=== PATIENT | male | born 1960 | race African-American/Black ===

== ENCOUNTER 2019-11-14 12:09 | Emergency (ER) | payer MEDICAID ==
[~2019-11-14] VITALS: Ht 172.7 cm; Wt 75.0 kg
[2019-11-14 13:10] VITALS: BP 159/91
[2019-11-14] MEDS ORDERED: KETOROLAC 30MG/ML VIAL IM ONE (13:15)
== END 2019-11-14 14:10 | disposition home or self-care (01) ==
LOC: ER 12:09
DX: M54.9 Dorsalgia, unspecified (principal); Z88.0 Allergy status to penicillin
CPT/HCPCS: 96372; 99283; J1885

== ENCOUNTER 2019-11-17 16:15 | Inpatient (IN) | payer MEDICAID ==
[~2019-11-17] VITALS: Ht 165.1 cm; Wt 81.6 kg
[2019-11-17] MEDS ORDERED: ONDANSETRON HCL 4MG/2ML INJ IV ONE (19:45)
[2019-11-17] MEDS ORDERED: KETOROLAC 15MG/ML VIAL IV ONE (19:45)
[2019-11-17 19:51] LABS: CLARITY URINE CLEAR (CLEAR); COLOR URINE YELLOW (YELLOW); KETONES URINE NEGATIVE (NEGATIVE); LEUKOCYTE ESTERASE URINE NEGATIVE (NEGATIVE); NITRITE URINE NEGATIVE (NEGATIVE); OCCULT BLOOD URINE NEGATIVE (NEGATIVE); PROTEIN URINE NEGATIVE (NEGATIVE); SPECIFIC GRAVITY URINE 1.002 (1.005-1.030)
[2019-11-17 19:57] LABS: HEMATOCRIT. 36.2 % (42.0-52.0); HEMOGLOBIN. 11.9 g/dL (14.0-18.0); MEAN CORPUSCULAR HEMOGLOBIN 23.2 pg (28.0-32.0); MEAN CORPUSCULAR VOLUME 70.4 fL (80.0-94.0); MEAN PLATELET VOLUME 7.6 fl (7.4-10.4); PLATELET 219 x1000/uL (130-400); RED BLOOD CELL COUNT 5.14 mill/uL (4.7-6.1); RED CELL DISTRIBUTION WIDTH 17.2 % (11.6-14.6)
[2019-11-17 19:58] LABS: CHLORIDE 87 mEq/L (98-107)
[2019-11-17] MEDS ORDERED: SODIUM CHLORIDE 0.9% 1,000 ML IV ONE (22:45)
[2019-11-17 23:27] LABS: PLATELET ESTIMATE NORMAL
[2019-11-18 03:00] VITALS: BP 136/76
[2019-11-18] MEDS ORDERED: MORPHINE SULFATE 2 MG/ML CPJ (NOT FOR IM USE) IV PRN (03:15)
[2019-11-18] MEDS ORDERED: ONDANSETRON HCL 4MG/2ML INJ IV PRN (03:15)
[2019-11-18] MEDS: LEVOFLOXACIN 500MG PREMIX 100 ML IV SCH (04:39)
[2019-11-18] MEDS: DEXT 5%/0.45% NACL KCL 20MEQ/L 1,000 ML IV SCH ×2 (04:39→16:15)
[2019-11-18 07:08] LABS: HEMATOCRIT. 35.5 % (42.0-52.0); HEMOGLOBIN. 11.6 g/dL (14.0-18.0); MEAN CORPUSCULAR VOLUME 70.5 fL (80.0-94.0); MEAN PLATELET VOLUME 7.5 fl (7.4-10.4); PLATELET 201 x1000/uL (130-400); RED BLOOD CELL COUNT 5.04 mill/uL (4.7-6.1); RED CELL DISTRIBUTION WIDTH 17.1 % (11.6-14.6)
[2019-11-18 07:27] LABS: CHLORIDE 93 mEq/L (98-107)
[2019-11-18 08:00] VITALS: BP 101/47
[2019-11-18 12:00] VITALS: BP 138/60
[2019-11-18] MEDS ORDERED: MORPHINE SULFATE 15MG TABLET SR PO SCH (12:15)
[2019-11-18] MEDS ORDERED: HYDROCODONE/ACETAMINOPHEN 5/325MG TABLET PO SCH (13:15)
[2019-11-18 13:54] LABS: PLATELET ESTIMATE NORMAL
[2019-11-18 16:00] VITALS: BP 148/61
[2019-11-18] MEDS: HEPARIN 5000 UNITS/ML VIAL SUBCUT SCH ×2 (16:14→20:39)
[2019-11-18] MEDS: FAMOTIDINE 20MG/2ML VIAL IV SCH ×2 (16:15→20:39)
[2019-11-18 16:17] LABS: TOTAL IRON BINDING CAPACITY 298 ug/dL (250-450)
[2019-11-18 20:00] VITALS: BP 130/57
[2019-11-19] VITALS (8 sets, daily range): BP systolic 131–174; BP diastolic 61–90
[2019-11-19] MEDS: DEXT 5%/0.45% NACL KCL 20MEQ/L 1,000 ML IV SCH ×2 (03:31→09:55)
[2019-11-19] MEDS: LEVOFLOXACIN 500MG PREMIX 100 ML IV SCH (03:41)
[2019-11-19] MEDS: HEPARIN 5000 UNITS/ML VIAL SUBCUT SCH (09:54)
[2019-11-19] MEDS: FAMOTIDINE 20MG/2ML VIAL IV SCH (09:54)
[2019-11-19] MEDS ORDERED: HYDRALAZINE HCL 50MG TABLET PO SCH (14:00)
[2019-11-19] MEDS ORDERED: FAMO-135 PO (15:08)
[2019-11-19] MEDS ORDERED: AMLO5TAB4 MT (15:08)
[2019-11-19] MEDS ORDERED: LEVO500T2 PO (15:08)
[2019-11-19] MEDS ORDERED: TRAM50TA94 MT (15:08)
[2019-11-19 16:41] LABS: CHLORIDE 93 mEq/L (98-107)
[2019-11-19] MEDS ORDERED: SODIUM CHLORIDE 0.9% 1,000 ML IV SCH (22:15)
[2019-11-21 09:11] LABS: SACCHAROMYCES CEREVISIAE IGG 29.7 Units (0.0-24.9); SACCHAROMYCES CEREVISIAE IGM <20.0 Units (0.0-24.9)
[2019-11-21 13:06] LABS: ATYPICAL pANCA <1:20 titer (Neg:<1:20)
== END 2019-11-19 22:20 | disposition home or self-care (01) | DRG 426 ==
LOC: ER 16:15 → 5WST 23:57 → ENRESERV 11-18 00:54
PROVIDERS: ADMIT Internal Medicine; ATTEND Internal Medicine
PROC: 05HY33Z Insertion of Infusion Device into Upper Vein, Percutaneous Approach (ICD-10-PCS; principal; 2019-11-18)
PROC: B54NZZA Ultrasonography of Left Upper Extremity Veins, Guidance (ICD-10-PCS; 2019-11-18)
DX: E87.1 Hypo-osmolality and hyponatremia (principal); K52.9 Noninfective gastroenteritis and colitis, unspecified; F10.10 Alcohol abuse, uncomplicated; D72.819 Decreased white blood cell count, unspecified; E88.09 Other disorders of plasma-protein metabolism, not elsewhere classified; R74.0 Nonspecific elevation of levels of transaminase and lactic acid dehydrogenase [LDH]; D50.9 Iron deficiency anemia, unspecified; I10 Essential (primary) hypertension; Z87.11 Personal history of peptic ulcer disease; Z98.1 Arthrodesis status; Z88.0 Allergy status to penicillin; Z79.899 Other long term (current) drug therapy; K29.50 Unspecified chronic gastritis without bleeding; M54.9 Dorsalgia, unspecified
CPT/HCPCS: 36415; 71045; 74018; 76705; 76937; 80048; 80053; 81003; 82728; 83540; 83550; 85025; 86256; 86671; 86703; 93005; 96374; 97162; 99291; C1725; J1644; J1885; J1956; J2270; J2405; J3490; J7030

== ENCOUNTER 2020-06-07 11:44 | Emergency (ER) | payer MEDICAID ==
[~2020-06-07] VITALS: Ht 175.3 cm; Wt 79.0 kg
[~2020-06-07 11:44] MED LIST: AMLO5TAB4 MT; FAMO-135 PO; LEVO500T2 PO; TRAM50TA94 MT
[2020-06-07 12:43] LABS: EOSINOPHILS % 4.1 % (0.0-5.0); HEMATOCRIT. 44.2 % (42.0-52.0); HEMOGLOBIN. 14.4 g/dL (14.0-18.0); LYMPHOCYTES % 34.2 % (20.0-50.0); MEAN CORPUSCULAR HEMOGLOBIN 22.4 pg (28.0-32.0); MEAN CORPUSCULAR VOLUME 68.9 fL (80.0-94.0); MEAN PLATELET VOLUME 7.7 fl (7.4-10.4); MONOCYTES % 8.2 % (2.0-8.0); NEUTROPHILS % 52.5 % (40.0-76.0); PLATELET 242 x1000/uL (130-400); RED BLOOD CELL COUNT 6.42 mill/uL (4.7-6.1); RED CELL DISTRIBUTION WIDTH 16.3 % (11.6-14.6)
[2020-06-07 12:50] LABS: CHLORIDE 90 mEq/L (98-107)
[2020-06-07 12:54] LABS: ETHANOL BLOOD < 10 mg/dL
[2020-06-07 13:10] LABS: PLATELET ESTIMATE NORMAL
[2020-06-07] MEDS ORDERED: TRAM50TA3 PO (14:42)
[2020-06-07 15:21] LABS: INR 1.1; PROTHROMBIN TIME 11.3 sec (9.6-11.0)
[2020-06-07] MEDS ORDERED: FAMOTIDINE 20MG TABLET PO ONE (15:30)
[2020-06-07 15:54] VITALS: BP 148/69
== END 2020-06-07 16:10 | disposition home or self-care (01) ==
LOC: ER 12:01
DX: R10.13 Epigastric pain (principal); I10 Essential (primary) hypertension; Z98.890 Other specified postprocedural states; Z79.899 Other long term (current) drug therapy; Z88.0 Allergy status to penicillin
CPT/HCPCS: 36415; 71045; 74176; 80053; 80320; 85025; 86850; 86900; 93005; 99285; A4315; G0480

== ENCOUNTER 2021-03-06 17:38 | Inpatient (IN) | payer MEDICAID, OTHER ==
[~2021-03-06] VITALS: Ht 175.3 cm; Wt 89.8 kg
[~2021-03-06 17:38] MED LIST changes: +TRAM50TA3 PO
[2021-03-06 18:54] LABS: HEMATOCRIT. 37.8 % (42.0-52.0); HEMOGLOBIN. 11.8 g/dL (14.0-18.0); MEAN CORPUSCULAR HEMOGLOBIN 21.3 pg (28.0-32.0); MEAN PLATELET VOLUME 6.7 fl (7.4-10.4); PLATELET 293 x1000/uL (130-400); RED BLOOD CELL COUNT 5.55 mill/uL (4.7-6.1); RED CELL DISTRIBUTION WIDTH 17.2 % (11.6-14.6)
[2021-03-06 18:54] LABS: CLARITY URINE CLEAR (CLEAR); COLOR URINE YELLOW (YELLOW); KETONES URINE NEGATIVE (NEGATIVE); LEUKOCYTE ESTERASE URINE NEGATIVE (NEGATIVE); NITRITE URINE NEGATIVE (NEGATIVE); OCCULT BLOOD URINE 1+ (NEGATIVE); PH URINE 7.5 (4.5-8.0); PROTEIN URINE 2+ (NEGATIVE); SPECIFIC GRAVITY URINE 1.006 (1.005-1.030); UROBILINOGEN URINE 0.2 E.U./dL (0.2-1.0)
[2021-03-06 18:59] LABS: CHLORIDE 78 mEq/L (98-107)
[2021-03-06 19:02] LABS: PROTHROMBIN TIME 10.9 sec (9.6-11.0)
[2021-03-06 19:03] LABS: ETHANOL BLOOD < 10 mg/dL
[2021-03-06] MEDS ORDERED: ACETAMINOPHEN 325MG TABLET PO STA (19:04)
[2021-03-06 19:09] LABS: *AMPHETAMINES SCREEN URINE NEGATIVE (NEGATIVE)
[2021-03-06 19:10] LABS: *BARBITURATES SCREEN URINE NEGATIVE (NEGATIVE); *BENZODIAZEPINES SCREEN URINE NEGATIVE (NEGATIVE); *COCAINE SCREEN URINE NEGATIVE (NEGATIVE); METHADONE URINE SCREEN NEGATIVE (NEGATIVE); OPIATES URINE SCREEN NEGATIVE (NEGATIVE); PHENCYCLIDINE URINE SCREEN NEGATIVE (NEGATIVE)
[2021-03-06 19:11] LABS: CANNABINOID URINE SCREEN NEGATIVE (NEGATIVE)
[2021-03-06] MEDS ORDERED: FAMOTIDINE 20MG TABLET PO ONE (19:15)
[2021-03-06] MEDS ORDERED: MORPHINE SULFATE 4 MG/ML CPJ (NOT FOR IM USE) IV NR (19:38)
[2021-03-06] MEDS ORDERED: ONDANSETRON HCL 4MG/2ML INJ IV NR (19:38)
[2021-03-06] MEDS ORDERED: SODIUM CHLORIDE 0.9% 1,000 ML IV ONE (19:45)
[2021-03-06 20:51] LABS: PLATELET ESTIMATE NORMAL
[2021-03-06] MEDS ORDERED: MORPHINE SULFATE 4 MG/ML CPJ (NOT FOR IM USE) IV ONE (21:15)
[2021-03-07] MEDS ORDERED: NALOXONE HCL 0.4 MG/ML 1ML VIAL IV PRN (01:30)
[2021-03-07] MEDS ORDERED: CLONIDINE 0.1MG TABLET PO PRN (01:30)
[2021-03-07] MEDS: HYDROCODONE/ACETAMINOPHEN 5/325MG TABLET PO PRN ×3 (01:30→23:16)
[2021-03-07 09:50] VITALS: BP 165/74
[2021-03-07] MEDS: PANTOPRAZOLE SODIUM 40 MG/VIAL IV SCH (11:25)
[2021-03-07] MEDS: AMLODIPINE 5MG TABLET PO SCH ×2 (11:37→17:22)
[2021-03-07] MEDS: DEXT 5%/0.9% NACL KCL 20MEQ/L 1,000 ML IV SCH ×2 (11:50→21:18)
[2021-03-07 12:00] VITALS: BP 137/68
[2021-03-07] MEDS ORDERED: NAPR220C15 PO (12:26)
[2021-03-07] MEDS ORDERED: NAPR1TAB28 PO (12:26)
[2021-03-07] MEDS ORDERED: INFLUENZA VACCINE 05/PF 0.5 ML SYRINGE IM ONE (13:00)
[2021-03-07] MEDS ORDERED: ONDANSETRON HCL 4MG/2ML INJ IV PRN (15:30)
[2021-03-07 16:00] VITALS: BP 121/63
[2021-03-07 16:38] LABS: HEMATOCRIT. 34.8 % (42.0-52.0); HEMOGLOBIN. 10.9 g/dL (14.0-18.0); MEAN CORPUSCULAR HEMOGLOBIN 21.2 pg (28.0-32.0); MEAN CORPUSCULAR VOLUME 67.3 fL (80.0-94.0); MEAN PLATELET VOLUME 7.1 fl (7.4-10.4); PLATELET 259 x1000/uL (130-400); RED BLOOD CELL COUNT 5.17 mill/uL (4.7-6.1); RED CELL DISTRIBUTION WIDTH 17.7 % (11.6-14.6)
[2021-03-07 16:41] VITALS: BP 165/74
[2021-03-07 16:51] LABS: CHLORIDE 82 mEq/L (98-107)
[2021-03-07 19:04] LABS: PLATELET ESTIMATE NORMAL
[2021-03-07 20:00] VITALS: BP 125/50
[2021-03-08] VITALS: BP 134/69
[2021-03-08 04:00] VITALS: BP 112/51
[2021-03-08 05:32] LABS: TOTAL IRON BINDING CAPACITY 296 ug/dL (250-450)
[2021-03-08 08:00] VITALS: BP 136/55
[2021-03-08] MEDS ORDERED: LIDOCAINE HCL 1% 20ML VIAL (Pyxis) INJ ONE (08:10)
[2021-03-08] MEDS: AMLODIPINE 5MG TABLET PO SCH ×2 (09:34→17:07)
[2021-03-08 10:17] LABS: FOLIC ACID (FOLATE) SERUM 8.8 ng/mL (>5.38)
[2021-03-08] MEDS: PANTOPRAZOLE SODIUM 40 MG/VIAL IV SCH (10:17)
[2021-03-08] MEDS: DEXT 5%/0.9% NACL KCL 20MEQ/L 1,000 ML IV SCH (10:18)
[2021-03-08] MEDS: HYDROCODONE/ACETAMINOPHEN 5/325MG TABLET PO PRN (11:34)
[2021-03-08 12:00] VITALS: BP 132/72
[2021-03-08] MEDS ORDERED: PROT40 MT (15:25)
[2021-03-08] MEDS ORDERED: AMLO5TAB4 MT (15:25)
[2021-03-08] MEDS ORDERED: HYDRALAZINE 20MG/ML VIAL IV PRN (15:30)
[2021-03-08] MEDS ORDERED: BISACODYL 10MG SUPP PR PRN (15:30)
[2021-03-08] MEDS ORDERED: IPRATROPIUM/ALBUTEROL 0.5-3(2.5)MG/3ML NEB HHN PRN (15:30)
[2021-03-08 16:00] VITALS: BP 132/76
[2021-03-08 17:02] LABS: HEMATOCRIT 35.2 % (42.0-52.0); HEMOGLOBIN 11.3 g/dL (14.0-18.0); MEAN CORPUSCULAR HEMOGLOBIN 21.5 pg (28.0-32.0); MEAN CORPUSCULAR VOLUME 66.8 fL (80.0-94.0); PLATELET 279 x1000/uL (130-400); RED BLOOD CELL COUNT 5.26 mill/uL (4.7-6.1); RED CELL DISTRIBUTION WIDTH 17.3 % (11.6-14.6)
[2021-03-08 17:16] LABS: CHLORIDE 92 mEq/L (98-107)
[2021-03-08 17:46] VITALS: BP 132/76
[2021-03-08 17:53] LABS: HEPATITIS B SURFACE ANTIGEN NEGATIVE
== END 2021-03-08 19:04 | disposition home or self-care (01) | DRG 426 ==
LOC: ER 17:38 → MICUSO 23:15 → 7EST 03-07 07:24
PROVIDERS: ADMIT Internal Medicine; ATTEND Internal Medicine
PROC: 02HV33Z Insertion of Infusion Device into Superior Vena Cava, Percutaneous Approach (ICD-10-PCS; principal; 2021-03-08)
PROC: B518ZZA Fluoroscopy of Superior Vena Cava, Guidance (ICD-10-PCS; 2021-03-08)
PROC: B548ZZA Ultrasonography of Superior Vena Cava, Guidance (ICD-10-PCS; 2021-03-08)
DX: E87.1 Hypo-osmolality and hyponatremia (principal); E88.09 Other disorders of plasma-protein metabolism, not elsewhere classified; K92.2 Gastrointestinal hemorrhage, unspecified; D50.9 Iron deficiency anemia, unspecified; D72.819 Decreased white blood cell count, unspecified; F10.10 Alcohol abuse, uncomplicated; G89.29 Other chronic pain; Y90.0 Blood alcohol level of less than 20 mg/100 ml; K42.9 Umbilical hernia without obstruction or gangrene; M25.562 Pain in left knee; Z20.822 Contact with and (suspected) exposure to COVID-19; M47.816 Spondylosis without myelopathy or radiculopathy, lumbar region; M79.10 Myalgia, unspecified site; M54.9 Dorsalgia, unspecified; N20.0 Calculus of kidney; I10 Essential (primary) hypertension; K43.9 Ventral hernia without obstruction or gangrene; Z87.11 Personal history of peptic ulcer disease; Z87.891 Personal history of nicotine dependence; Z79.899 Other long term (current) drug therapy; Z88.0 Allergy status to penicillin; Z71.51 Drug abuse counseling and surveillance of drug abuser
CPT/HCPCS: 36415; 36573; 71045; 74176; 80048; 80053; 80305; 80320; 81003; 82533; 82607; 82728; 82746; 83540; 83550; 83880; 84300; 84436; 84443; 84484; 85025; 85027; 85044; 86705; 86709; 86803; 87340; 87426; 90686; 93005; 99285; C1725; C9113; J2270; J2405; J3490; G0480

== ENCOUNTER 2023-06-03 09:50 | Inpatient (IN) | payer OTHER ==
[~2023-06-03] VITALS: Ht 180.3 cm; Wt 92.5 kg
[~2023-06-03 09:50] MED LIST changes: +BISM525O28 PO; -FAMO-135 PO; +HYDR-4379 PO; -LEVO500T2 PO; +NAPR220T66 PO; +PHEN1PAC8 PO; +PROT40 MT; -TRAM50TA3 PO
[2023-06-03 11:05] LABS: BASOPHILS % 0.8 % (0.0-2.0); EOSINOPHILS % 0.8 % (0.0-5.0); HEMATOCRIT. 36.9 % (42.0-52.0); HEMOGLOBIN. 11.9 g/dL (14.0-18.0); LYMPHOCYTES % 23.1 % (20.0-50.0); MEAN CORPUSCULAR HEMOGLOBIN 20.8 pg (28.0-32.0); MEAN CORPUSCULAR HGB CONC 32.1 g/dL (31.0-37.0); MEAN CORPUSCULAR VOLUME 64.7 fL (80.0-94.0); MEAN PLATELET VOLUME 7.5 fl (7.4-10.4); MONOCYTES % 8.6 % (2.0-8.0); NEUTROPHILS % 66.7 % (40.0-76.0); PLATELET 528 x1000/uL (130-400); RED BLOOD CELL COUNT 5.71 mill/uL (4.7-6.1); RED CELL DISTRIBUTION WIDTH 18.5 % (11.6-14.6); WHITE BLOOD COUNT 7.6 x1000/uL (4.5-11.0)
[2023-06-03 11:12] LABS: ALANINE AMINOTRANSFERASE 45 IU/L (10-49); ALBUMIN 4.4 g/dL (3.2-4.8); ASPARTATE AMINOTRANSFERASE 60 IU/L (<34); CALCIUM 9.1 mg/dL (8.7-10.4); CARBON DIOXIDE 22 mEq/L (21-32); CHLORIDE 94 mEq/L (98-107); CREATININE 0.8 mg/dL (0.6-1.3); GLUCOSE 92 mg/dL (70-105); POTASSIUM 5.5 mEq/L (3.5-5.1); SODIUM 125 mEq/L (136-145); TROPONIN I HIGH SENSITIVITY 7 ng/L (3.0-53); UREA NITROGEN BLOOD 8 mg/dL (9-23)
[2023-06-03 11:18] LABS: ADD RBC MORPHOLOGY YES; DIFFERENTIAL COMMENT 1
[2023-06-03 11:25] LABS: PROTEIN TOTAL 9.9 g/dL (6.0-8.3)
[2023-06-03 11:49] LABS: INR 1.2; PROTHROMBIN TIME 13.2 sec (9.6-11.0)
[2023-06-03] MEDS: METOPROLOL TARTRATE 5MG/5ML VIAL IV ONE (11:50)
[2023-06-03] MEDS: HYDROCODONE/ACETAMINOPHEN 5/325MG TABLET PO ONE (11:51)
[2023-06-03 12:06] LABS: MICROCYTOSIS 2+; PLATELET ESTIMATE INCREASED; TARGET CELLS FEW
[2023-06-03 12:44] LABS: CLARITY URINE CLEAR (CLEAR); COLOR URINE YELLOW (YELLOW); GLUCOSE URINE NEGATIVE (NEGATIVE); KETONES URINE NEGATIVE (NEGATIVE); LEUKOCYTE ESTERASE URINE NEGATIVE (NEGATIVE); NITRITE URINE NEGATIVE (NEGATIVE); OCCULT BLOOD URINE NEGATIVE (NEGATIVE); PROTEIN URINE 1+ (NEGATIVE)
[2023-06-03 13:23] LABS: BACTERIA URINE NONE SEEN; SQUAMOUS EPITHELIAL CELL URINE NONE SEEN /lpf (RARE/1+); WBC URINE 0-2 /hpf (0-2)
[2023-06-03] MEDS: METOPROLOL TARTRATE 25MG TABLET PO ONE (13:23)
[2023-06-03 13:24] LABS: RBC URINE NONE SEEN /hpf (0-2)
[2023-06-03 14:25] VITALS: BP 133/79; PULSE 104; RESP 20; TEMP 97.4
[2023-06-03 16:00] VITALS: BP 119/77; PULSE 106; RESP 20; TEMP 97.4
[2023-06-03] MEDS: APIXABAN 5 MG TABLET PO SCH (16:50)
[2023-06-03] MEDS ORDERED: METOPROLOL SUCCINATE 50MG ER TABLET PO SCH (17:00)
[2023-06-03] MEDS ORDERED: METHYLPREDNISOLONE SOD SUCC 40MG VIAL IV SCH (19:00)
[2023-06-03 20:00] VITALS: BP 112/70; PULSE 108; RESP 20; TEMP 98.2
[2023-06-03] MEDS: METHYLPREDNISOLONE SOD SUCC 40MG/ML (ACT-O-VIAL) IV SCH (21:38)
[2023-06-03] MEDS: METOPROLOL TARTRATE 50MG TABLET PO SCH (21:39)
[2023-06-03] MEDS: IPRATROPIUM/ALBUTEROL 0.5-3(2.5)MG/3ML NEB HHN SCH (21:44)
[2023-06-03 21:49] VITALS: PULSE 77; RESP 18; O2SAT 95
[2023-06-03 23:28] LABS: BG CARBOXYHEMOGLOBIN 0.3 % (0.5-1.5); BG DEOXYHEMOGLOBIN 3.4 % (0.0-5.0); BG HCO3 ACT 24.4 mmol/L (22.0-26.0); BG OXYGEN SATURATION 96.6 % (92.0-98.5); BG OXYHEMOGLOBIN 96.3 % (94.0-97.0); BG PCO2 38.7 mmHg (35.0-45.0); BG PH 7.418 (7.350-7.450); BG PO2 89.9 mmHg (75.0-100.0); BG SAMPLE SITE RIGHT BRACHIAL; BG TOTAL HEMOGLOBIN 11.2 g/dL (12.0-18.0); BG VENT MODE NASAL CANNULA
[2023-06-03 23:49] LABS: HEMATOCRIT. 32.9 % (42.0-52.0); HEMOGLOBIN. 10.1 g/dL (14.0-18.0); MEAN CORPUSCULAR HEMOGLOBIN 20.3 pg (28.0-32.0); MEAN CORPUSCULAR HGB CONC 30.9 g/dL (31.0-37.0); MEAN CORPUSCULAR VOLUME 65.7 fL (80.0-94.0); MEAN PLATELET VOLUME 7.3 fl (7.4-10.4); PLATELET 438 x1000/uL (130-400); RED BLOOD CELL COUNT 5.01 mill/uL (4.7-6.1); RED CELL DISTRIBUTION WIDTH 18.2 % (11.6-14.6); WHITE BLOOD COUNT 7.3 x1000/uL (4.5-11.0)
[2023-06-03 23:55] LABS: DIFFERENTIAL COMMENT 1
[2023-06-04] VITALS (10 sets, daily range): BP systolic 93–151; BP diastolic 47–95; PULSE 71–143; RESP 18–20; TEMP 97–98.6; O2SAT 92
[2023-06-04] MEDS: SODIUM POLYSTYRENE SULFONATE 15 G/60 ML BOT PO NR (00:05)
[2023-06-04 00:16] LABS: CALCIUM 8.7 mg/dL (8.7-10.4); CARBON DIOXIDE 26 mEq/L (21-32); CHLORIDE 96 mEq/L (98-107); CHOLESTEROL 111 mg/dL (<200); CREATINE KINASE MB FRACTION 6.7 ng/mL (0.5-3.6); CREATININE 0.9 mg/dL (0.6-1.3); GLUCOSE 116 mg/dL (70-105); HDL CHOLESTEROL 39 mg/dL (>55); LDL CHOLESTEROL 56 mg/dL (5-100); POTASSIUM 4.2 mEq/L (3.5-5.1); SODIUM 129 mEq/L (136-145); TRIGLYCERIDE 51 mg/dL (0-150); UREA NITROGEN BLOOD 15 mg/dL (9-23)
[2023-06-04 00:53] LABS: HEPATITIS B SURFACE ANTIGEN NEGATIVE (Negative); HEPATITIS C AB NON REACTIVE (Neg) (Negative)
[2023-06-04] MEDS: TRAMADOL 50MG TABLET PO PRN (02:01)
[2023-06-04 06:40] LABS: HEMATOCRIT. 31.7 % (42.0-52.0); HEMOGLOBIN. 10.1 g/dL (14.0-18.0); MEAN CORPUSCULAR HEMOGLOBIN 20.3 pg (28.0-32.0); MEAN CORPUSCULAR HGB CONC 31.8 g/dL (31.0-37.0); MEAN CORPUSCULAR VOLUME 63.8 fL (80.0-94.0); MEAN PLATELET VOLUME 7.7 fl (7.4-10.4); PLATELET 484 x1000/uL (130-400); RED BLOOD CELL COUNT 4.97 mill/uL (4.7-6.1); WHITE BLOOD COUNT 6.8 x1000/uL (4.5-11.0)
[2023-06-04 06:50] LABS: CALCIUM 8.7 mg/dL (8.7-10.4); CARBON DIOXIDE 22 mEq/L (21-32); CHLORIDE 94 mEq/L (98-107); CHOLESTEROL 116 mg/dL (<200); CREATININE 0.9 mg/dL (0.6-1.3); GLUCOSE 195 mg/dL (70-105); HDL CHOLESTEROL 41 mg/dL (>55); LDL CHOLESTEROL 59 mg/dL (5-100); POTASSIUM 4.5 mEq/L (3.5-5.1); SODIUM 124 mEq/L (136-145); TRIGLYCERIDE 44 mg/dL (0-150); UREA NITROGEN BLOOD 17 mg/dL (9-23)
[2023-06-04 06:56] LABS: DIFFERENTIAL COMMENT 1
[2023-06-04] MEDS: DILTIAZEM HCL 5MG/ML 5ML VIAL IV NR (08:46)
[2023-06-04] MEDS: PANTOPRAZOLE SODIUM 40 MG/VIAL IV SCH (08:46)
[2023-06-04 10:42] LABS: PLATELET ESTIMATE SLIGHTLY INCREASED
[2023-06-04 10:43] LABS: ANISOCYTOSIS 1+; HYPOCHROMASIA 1+
[2023-06-04] MEDS: AMLODIPINE 5MG TABLET PO SCH (10:50)
[2023-06-04] MEDS: METOPROLOL TARTRATE 25MG TABLET PO NR (10:51)
[2023-06-04 11:06] LABS: PLATELET ESTIMATE INCREASED
[2023-06-04 11:07] LABS: ANISOCYTOSIS 2+; MICROCYTOSIS 3+; TARGET CELLS 2+
[2023-06-04 11:08] LABS: HYPOCHROMASIA 1+
[2023-06-04] MEDS: FUROSEMIDE 20MG/2ML VIAL IVP SCH (11:33)
[2023-06-04] MEDS: SODIUM CHLORIDE 0.9% 1,000 ML IV SCH (11:33)
[2023-06-04] MEDS: METOPROLOL TARTRATE 50MG TABLET PO NR (12:45)
[2023-06-04] MEDS: METOPROLOL TARTRATE 50MG TABLET PO SCH (23:27)
[2023-06-05] VITALS (10 sets, daily range): BP systolic 117–145; BP diastolic 38–91; PULSE 67–124; RESP 18–21; TEMP 97.2–98.1; O2SAT 95–96
[2023-06-05] MEDS ORDERED: IOHEXOL-350 100 ML BOTTLE ONE (10:47)
[2023-06-05 11:38] LABS: HEMATOCRIT. 33.9 % (42.0-52.0); HEMOGLOBIN. 10.5 g/dL (14.0-18.0); MEAN CORPUSCULAR HEMOGLOBIN 20.1 pg (28.0-32.0); MEAN CORPUSCULAR HGB CONC 31.1 g/dL (31.0-37.0); MEAN CORPUSCULAR VOLUME 64.6 fL (80.0-94.0); MEAN PLATELET VOLUME 7.7 fl (7.4-10.4); PLATELET 514 x1000/uL (130-400); RED BLOOD CELL COUNT 5.25 mill/uL (4.7-6.1); RED CELL DISTRIBUTION WIDTH 18.3 % (11.6-14.6); WHITE BLOOD COUNT 9.5 x1000/uL (4.5-11.0)
[2023-06-05 11:40] LABS: DIFFERENTIAL COMMENT 1
[2023-06-05 11:46] LABS: CALCIUM 9.2 mg/dL (8.7-10.4); CARBON DIOXIDE 22 mEq/L (21-32); CHLORIDE 94 mEq/L (98-107); CREATININE 0.8 mg/dL (0.6-1.3); GLUCOSE 143 mg/dL (70-105); POTASSIUM 4.7 mEq/L (3.5-5.1); SODIUM 125 mEq/L (136-145); UREA NITROGEN BLOOD 14 mg/dL (9-23)
[2023-06-05 13:00] LABS: NUCLEATED RED BLOOD CELLS 5 /100 WBC
[2023-06-05 13:01] LABS: ANISOCYTOSIS 2+; MICROCYTOSIS 3+; PLATELET ESTIMATE INCREASED; ROULEAUX 1+
[2023-06-05] MEDS ORDERED: NALOXONE HCL 0.4MG/ML VIAL IV PRN (15:45)
[2023-06-06] VITALS (9 sets, daily range): BP systolic 121–141; BP diastolic 65–92; PULSE 94–121; RESP 16–24; TEMP 96.6–98.2
[2023-06-06] MEDS: DIGOXIN 500MCG/2ML AMP IV NR (11:27)
[2023-06-06] MEDS: METOPROLOL TARTRATE 50MG TABLET PO NR (11:28)
[2023-06-06] MEDS: DIGOXIN 125MCG TABLET PO SCH (17:24)
[2023-06-06] MEDS: METOPROLOL TARTRATE 100MG TABLET PO SCH (21:25)
[2023-06-07] VITALS (9 sets, daily range): BP systolic 108–153; BP diastolic 69–86; PULSE 86–118; RESP 18–22; TEMP 96–98.7; O2SAT 96
[2023-06-07 07:27] LABS: BASOPHILS % 0.1 % (0.0-2.0); EOSINOPHILS % 0.1 % (0.0-5.0); HEMATOCRIT. 35.4 % (42.0-52.0); HEMOGLOBIN. 10.7 g/dL (14.0-18.0); LYMPHOCYTES % 12.1 % (20.0-50.0); MEAN CORPUSCULAR HEMOGLOBIN 20.3 pg (28.0-32.0); MEAN CORPUSCULAR HGB CONC 30.2 g/dL (31.0-37.0); MEAN CORPUSCULAR VOLUME 67.2 fL (80.0-94.0); MEAN PLATELET VOLUME 7.9 fl (7.4-10.4); NEUTROPHILS % 76.7 % (40.0-76.0); PLATELET 430 x1000/uL (130-400); RED BLOOD CELL COUNT 5.27 mill/uL (4.7-6.1); RED CELL DISTRIBUTION WIDTH 18.1 % (11.6-14.6)
[2023-06-07 07:36] LABS: DIFFERENTIAL COMMENT 1
[2023-06-07 07:55] LABS: CARBON DIOXIDE 23 mEq/L (21-32); CHLORIDE 95 mEq/L (98-107); CREATININE 0.8 mg/dL (0.6-1.3); GLUCOSE 114 mg/dL (70-105); POTASSIUM 4.7 mEq/L (3.5-5.1); SODIUM 129 mEq/L (136-145); UREA NITROGEN BLOOD 19 mg/dL (9-23)
[2023-06-07] MEDS: FAMOTIDINE 20MG/2ML VIAL IV SCH (09:16)
[2023-06-07] MEDS: DILTIAZEM HCL 5MG/ML 5ML VIAL IV SCH (13:45)
[2023-06-07] MEDS: DIGOXIN 500MCG/2ML AMP IV SCH (13:45)
[2023-06-07] MEDS: FUROSEMIDE 40MG/4ML VIAL IVP SCH (13:47)
[2023-06-07] MEDS: AMIODARONE HCL 200 MG TABLET PO SCH (13:47)
[2023-06-07] MEDS ORDERED: FUROSEMIDE 20MG/2ML VIAL IVP SCH (17:00)
[2023-06-08] VITALS (10 sets, daily range): BP systolic 111–131; BP diastolic 60–92; PULSE 71–113; RESP 16–20; TEMP 96.6–97.8; O2SAT 96–99
[2023-06-08 06:39] LABS: HEMATOCRIT. 33.1 % (42.0-52.0); HEMOGLOBIN. 10.2 g/dL (14.0-18.0); MEAN CORPUSCULAR HEMOGLOBIN 20.2 pg (28.0-32.0); MEAN CORPUSCULAR HGB CONC 30.8 g/dL (31.0-37.0); MEAN CORPUSCULAR VOLUME 65.6 fL (80.0-94.0); MEAN PLATELET VOLUME 7.9 fl (7.4-10.4); PLATELET 441 x1000/uL (130-400); RED BLOOD CELL COUNT 5.05 mill/uL (4.7-6.1); RED CELL DISTRIBUTION WIDTH 18.2 % (11.6-14.6); WHITE BLOOD COUNT 11.8 x1000/uL (4.5-11.0)
[2023-06-08 06:52] LABS: DIFFERENTIAL COMMENT 1
[2023-06-08 07:11] LABS: CALCIUM 8.8 mg/dL (8.7-10.4); CARBON DIOXIDE 27 mEq/L (21-32); CHLORIDE 94 mEq/L (98-107); CREATININE 0.9 mg/dL (0.6-1.3); GLUCOSE 202 mg/dL (70-105); POTASSIUM 3.9 mEq/L (3.5-5.1); SODIUM 131 mEq/L (136-145); UREA NITROGEN BLOOD 22 mg/dL (9-23)
[2023-06-08 20:10] LABS: ANISOCYTOSIS 1+; MICROCYTOSIS 2+; NUCLEATED RED BLOOD CELLS 2 /100 WBC; PLATELET ESTIMATE INCREASED; TARGET CELLS 2+
[2023-06-09] VITALS: BP 142/85; PULSE 115; RESP 20; TEMP 98
[2023-06-09 04:00] VITALS: BP 134/75; PULSE 106; RESP 18; TEMP 97
[2023-06-09 08:00] VITALS: BP 107/65; PULSE 95; RESP 18; TEMP 97.7
[2023-06-09 10:20] LABS: HEMATOCRIT. 34.9 % (42.0-52.0); HEMOGLOBIN. 10.9 g/dL (14.0-18.0); MEAN CORPUSCULAR HEMOGLOBIN 20.2 pg (28.0-32.0); MEAN CORPUSCULAR HGB CONC 31.2 g/dL (31.0-37.0); MEAN CORPUSCULAR VOLUME 64.8 fL (80.0-94.0); MEAN PLATELET VOLUME 7.9 fl (7.4-10.4); PLATELET 452 x1000/uL (130-400); RED BLOOD CELL COUNT 5.39 mill/uL (4.7-6.1); RED CELL DISTRIBUTION WIDTH 18.5 % (11.6-14.6)
[2023-06-09 10:35] LABS: DIFFERENTIAL COMMENT 1
[2023-06-09] MEDS ORDERED: MED4 MT (10:49)
[2023-06-09] MEDS ORDERED: APIX5TAB PO (10:49)
[2023-06-09] MEDS ORDERED: DIGO-34 PO (10:49)
[2023-06-09] MEDS ORDERED: FURO-151 MT (10:49)
[2023-06-09] MEDS ORDERED: AMI2 PO (10:49)
[2023-06-09] MEDS ORDERED: METO100T16 PO (10:49)
[2023-06-09 11:08] LABS: CALCIUM 8.8 mg/dL (8.7-10.4); CARBON DIOXIDE 33 mEq/L (21-32); CHLORIDE 90 mEq/L (98-107); CREATININE 0.9 mg/dL (0.6-1.3); DIGOXIN 0.5 ng/mL (0.8-2.0); GLUCOSE 217 mg/dL (70-105); POTASSIUM 3.7 mEq/L (3.5-5.1); SODIUM 133 mEq/L (136-145); UREA NITROGEN BLOOD 24 mg/dL (9-23)
[2023-06-09 12:00] VITALS: BP 107/64; PULSE 92; TEMP 97.7; O2SAT 99
[2023-06-10 09:57] LABS: ATYPICAL LYMPHOCYTES 1; NUCLEATED RED BLOOD CELLS 3 /100 WBC
[2023-06-10 09:58] LABS: PLATELET ESTIMATE SLIGHTLY INCREASED
[2023-06-10 09:59] LABS: MICROCYTOSIS 2+; TARGET CELLS 1+
[2023-06-10 10:00] LABS: ANISOCYTOSIS 2+
== END 2023-06-09 12:35 | disposition home or self-care (01) | DRG 141 ==
LOC: ER 09:50 → 7WST 12:56 → EDBEDREQ 13:03 → EDBEDREQTM 13:03
PROVIDERS: ADMIT Internal Medicine; ATTEND Internal Medicine
DX: J45.901 Unspecified asthma with (acute) exacerbation (principal); I50.33 Acute on chronic diastolic (congestive) heart failure; E87.1 Hypo-osmolality and hyponatremia; I48.20 Chronic atrial fibrillation, unspecified; I11.0 Hypertensive heart disease with heart failure; E66.9 Obesity, unspecified; R06.03 Acute respiratory distress; K21.9 Gastro-esophageal reflux disease without esophagitis; Z79.899 Other long term (current) drug therapy; Z88.0 Allergy status to penicillin; Z68.28 Body mass index [BMI] 28.0-28.9, adult
CPT/HCPCS: 36415; 36600; 71045; 71275; 76700; 80048; 80053; 80061; 80162; 81003; 82375; 82550; 82553; 82805; 82962; 83036; 83735; 83880; 84443; 84484; 85025; 85379; 86705; 87340; 93005; 93306; 93970; 94640; 99285; C9113; J1160; J1940; J2920; J3490; J7030; Q9967